=== PATIENT | male | born 1985 | race Caucasian/White ===

== ENCOUNTER 2017-09-07 05:53 | Emergency (ER) | END 2017-09-07 11:25 | disposition home or self-care (01) | DX: N20.0 Calculus of kidney (principal); N13.30 Unspecified hydronephrosis; N50.812 Left testicular pain; Q60.3 Renal hypoplasia, unilateral | CPT/HCPCS: 74177; 76870; 80048; 81001; 85025; 85610; 85730; 87491; 87591; 93975; 96361; 96374; 96375; 96376; 99285; J1170; J1885; J2270; J2405; J7030; Q9967 ==